=== PATIENT | female | born 1980 | race African-American/Black ===

== ENCOUNTER 2017-07-11 13:10 | Observation (INO) ==
[2017-07-11] MEDS ORDERED: SODIUM CHLORIDE 0.9% 250 ML IV PRN (14:38)
[2017-07-11 14:44] LABS: Basophils # 0.1 10*3/uL (0.0-0.2); Basophils % 0.7 % (0.0-0.8); Eosinophils # 1.1 10*3/uL (0.0-0.87); Eosinophils % 7.6 % (0.00-10.9); Hematocrit 20.9 VOL% (35.7-47.0); Hemoglobin 7.4 GM/DL (12.0-16.0); Immature Granulocytes % 3.5 %; Lymphocytes # 3.5 10*3/uL (1.4-4.0); Mean Corpuscular HGB Conc 35.4 GM/DL (32-36); Mean Corpuscular Hemoglobin 34 PG (27-34); Mean Platelet Volume 10.1 FL (9.6-12.0); Monocytes # 1.8 10*3/uL (0.11-0.8); Monocytes % 12.6 % (1.7-12.7); Neutrophils # 7.5 10*3/uL (1.4-7.4); Neutrophils % 51.6 % (38.7-73.9); Platelet Count 263 T/CUMM (130-400); White Blood Count 14.5 T/CUMM (4-12)
[2017-07-11] MEDS ORDERED: HYDROmorphone 2 MG/1 ML VIAL ONE (15:31)
[2017-07-11] MEDS ORDERED: PROMETHAZINE 25 MG/1 ML VIAL ONE (15:34)
[2017-07-11] MEDS ORDERED: HYDROmorphone 2 MG/1 ML VIAL IV STA (15:37)
[2017-07-11] MEDS ORDERED: PROMETHAZINE 25 MG/1 ML VIAL IM STA (15:38)
[2017-07-11] MEDS ORDERED: PROMETHAZINE 25 MG/1 ML VIAL IM PRN (16:11)
[2017-07-11] MEDS ORDERED: ZALEPLON 5 MG CAPSULE PO PRN (16:11)
[2017-07-11] MEDS ORDERED: ACETAMINOPHEN 325 MG TABLET PO PRN (16:11)
[2017-07-11] MEDS ORDERED: ONDANSETRON 4 MG/2 ML VIAL IV PRN (16:11)
[2017-07-11] MEDS: SODIUM CHLORIDE 0.9% 1,000 ML IV SCH (16:23)
[2017-07-11] MEDS: diphenhydrAMINE 50 MG/1 ML VIAL IV PRN ×2 (16:24→22:50)
[2017-07-11] MEDS: HYDROmorphone 2 MG/1 ML VIAL IV PRN ×3 (16:34→22:50)
[2017-07-11 17:36] LABS: Anisocytosis 1+; Band Neutrophils 1 % (0-10); Eosinophils 9 % (0-10); Lymphocytes 24 % (20-55); Nucleated Red Blood Cells 25 (0-5); Platelet Estimate Normal; Poikilocytosis 2+; Segmented Neutrophils 60 % (50-85); Target Cells Few; Tear Drop Cells Few; Total Cells Counted 100
[2017-07-11 17:38] LABS: Burr Cells Few
[2017-07-11 17:39] LABS: Sickle Cells Few
[2017-07-12 00:29] LABS: Apearance,Urine CLEAR (Clear); Bacteria,Urine Occasional /HPF (Few); Bilirubin,Urine Negative (Negative); Blood, Urine Small mg/dL (Negative); Glucose,Urine (UA) Negative (Negative); Ketones,Urine Negative (Negative); Nitrite,Urine Negative (Negative); Protein,Urine Negative; RBC,Urine <1 /HPF (0-4); Squamous Epithelial Cell,Urine Occasional /HPF (0-10); Urine Color Yellow (Yellow); Urine Specific Gravity 1.008 (1.001-1.035); Urine Urobilinogen < 2.0 EU/DL (0.2-1.0); WBC,Urine 1 /HPF (0-6)
[2017-07-12] MEDS: HYDROmorphone 2 MG/1 ML VIAL IV PRN ×6 (01:05→14:44)
[2017-07-12 02:39] LABS: Barbiturates Screen,Urine Negative (Negative); Benzodiazepines Screen,Urine Positive (Negative); Cannabinoid Screen,Urine Negative (Negative); Opiate Screen,Urine Positive (Negative); Phencyclidine Screen,Urine Negative (Negative)
[2017-07-12 02:54] LABS: Hematocrit 26.6 VOL% (35.7-47.0); Hemoglobin 9.3 GM/DL (12.0-16.0)
[2017-07-12] MEDS: diphenhydrAMINE 50 MG/1 ML VIAL IV PRN ×2 (04:46→10:44)
[2017-07-12] MEDS: SODIUM CHLORIDE 0.9% 1,000 ML IV SCH ×2 (07:40→08:48)
[2017-07-12] MEDS ORDERED: tiZANidine 4 MG TABLET PO PRN (11:29)
[2017-07-12] MEDS ORDERED: DEFERASIROX PO SCH (11:30)
[2017-07-12] MEDS ORDERED: FOLIC ACID 1 MG TABLET PO SCH (11:30)
[2017-07-12] MEDS ORDERED: FERROUS SULFATE 325 MG TABLET PO SCH (11:30)
[2017-07-12] MEDS ORDERED: HYDROXYUREA 500 MG CAPSULE PO SCH (11:30)
[2017-07-12] MEDS ORDERED: ALPRAZolam 0.5 MG TABLET PO PRN (11:30)
[2017-07-12 12:13] VITALS: BP 110/61
[2017-07-12] MEDS ORDERED: HEPARIN LOCK FLUSH 500 UNIT/5 ML SYRINGE IV ONE (14:42)
== END 2017-07-12 16:14 | disposition home or self-care (01) ==
LOC: N.ED 13:10 → N.EDINP 13:10 → N.4E 15:55
PROVIDERS: ADMIT Internal Medicine; ATTEND Internal Medicine

== ENCOUNTER 2017-12-20 15:53 | Inpatient (IN) ==
[2017-12-20] MEDS ORDERED: SODIUM CHLORIDE 0.9% 1,000 ML IV STA (18:01)
[2017-12-20] MEDS ORDERED: MORPHINE 2 MG/1 ML SYRINGE IV STA (18:04)
[2017-12-20 18:30] LABS: Basophils # 0.1 10*3/uL (0.0-0.2); Basophils % 0.3 % (0.0-0.8); Eosinophils # 1.6 10*3/uL (0.0-0.87); Eosinophils % 10.9 % (0.00-10.9); Hematocrit 18.6 VOL% (35.7-47.0); Hemoglobin 6.5 GM/DL (12.0-16.0); Immature Granulocytes % 1.2 %; Immature Granulocytes Absolute 0.17 #; Lymphocytes # 2.8 10*3/uL (1.4-4.0); Mean Corpuscular HGB Conc 34.9 GM/DL (32-36); Mean Corpuscular Hemoglobin 32 PG (27-34); Mean Corpuscular Volume 90.7 FL (87-102); Mean Platelet Volume 9.5 FL (9.6-12.0); Monocytes # 1.2 10*3/uL (0.11-0.8); Monocytes % 8.4 % (1.7-12.7); NRBC # 0.34 10*3/uL; Neutrophils # 8.8 10*3/uL (1.4-7.4); Neutrophils % 60.2 % (38.7-73.9); Platelet Count 303 T/CUMM (130-400); Red Blood Count 2.05 MC/CUMM (3.8-5.5); Red Cell Distribution Width 19.2 % (9.3-17.3); White Blood Count 14.6 T/CUMM (4-12)
[2017-12-20] MEDS ORDERED: MORPHINE 4 MG/1 ML VIAL ONE (18:35)
[2017-12-20 19:00] LABS: Apearance,Urine CLEAR (Clear); Bacteria,Urine Occasional /HPF (Few); Bilirubin,Urine Negative (Negative); Blood, Urine Small mg/dL (Negative); Glucose,Urine (UA) Negative (Negative); Ketones,Urine Negative (Negative); Mucus,Urine Occasional /LPF (Occasional); Nitrite,Urine Negative (Negative); Protein,Urine 30 MG/DL; Squamous Epithelial Cell,Urine Occasional /HPF (0-10); Urine Color Yellow (Yellow); Urine Specific Gravity 1.009 (1.001-1.035); Urine Urobilinogen < 2.0 EU/DL (0.2-1.0); WBC,Urine <1 /HPF (0-6)
[2017-12-20 19:22] LABS: Albumin 3.7 G/DL (3.4-5.0); Bilirubin,Total 1.5 MG/DL (0.2-1.0); Calcium 8.2 MG/DL (8.5-10.1); Osmolality,Calculated 279.4 MOS/KG (273-304); Potassium 4.1 MMOL/L (3.5-5.1); Total Protein 7.7 G/DL (6.4-8.3)
[2017-12-20] MEDS ORDERED: ACETAMINOPHEN 325 MG TABLET PO PRN (19:52)
[2017-12-20] MEDS ORDERED: SODIUM CHLORIDE 0.9% 1,000 ML IV PRN (19:57)
[2017-12-20] MEDS ORDERED: PROMETHAZINE 25 MG/1 ML VIAL IM PRN (19:58)
[2017-12-20] MEDS ORDERED: SODIUM CHLORIDE 0.9% 1,000 ML IV SCH (20:00)
[2017-12-20] MEDS: ENOXAPARIN 40 MG/0.4 ML SYRINGE SUBCUT SCH (21:26)
[2017-12-20] MEDS: HYDROmorphone 2 MG/1 ML VIAL IV PRN (21:28)
[2017-12-20] MEDS ORDERED: diphenhydrAMINE CAP 25 MG CAPSULE PO ONE (21:54)
[2017-12-21] MEDS: HYDROmorphone 2 MG/1 ML VIAL IV PRN ×5 (01:21→21:12)
[2017-12-21 06:59] LABS: Basophils # 0.1 10*3/uL (0.0-0.2); Basophils % 0.7 % (0.0-0.8); Eosinophils # 1.6 10*3/uL (0.0-0.87); Eosinophils % 10.9 % (0.00-10.9); Hematocrit 22.5 VOL% (35.7-47.0); Immature Granulocytes % 1.1 %; Immature Granulocytes Absolute 0.16 #; Lymphocytes # 2.5 10*3/uL (1.4-4.0); Lymphocytes % 17.1 % (21.3-54.2); Mean Corpuscular HGB Conc 35.6 GM/DL (32-36); Mean Corpuscular Hemoglobin 31 PG (27-34); Mean Corpuscular Volume 87.9 FL (87-102); Mean Platelet Volume 9.7 FL (9.6-12.0); Monocytes # 1.1 10*3/uL (0.11-0.8); Monocytes % 7.8 % (1.7-12.7); Neutrophils % 62.4 % (38.7-73.9); Platelet Count 268 T/CUMM (130-400); Red Blood Count 2.56 MC/CUMM (3.8-5.5); Red Cell Distribution Width 17.9 % (9.3-17.3); White Blood Count 14.4 T/CUMM (4-12)
[2017-12-21 07:45] LABS: Albumin 3.4 G/DL (3.4-5.0); Bilirubin,Total 1.8 MG/DL (0.2-1.0); Calcium 8.1 MG/DL (8.5-10.1); Total Protein 7.1 G/DL (6.4-8.3)
[2017-12-21 07:46] LABS: Osmolality,Calculated 279.3 MOS/KG (273-304); Potassium 4.3 MMOL/L (3.5-5.1)
[2017-12-21] MEDS ORDERED: RIZATRIPTAN ODT 5 MG TABLET PO ONE (09:14)
[2017-12-21] MEDS: CALCIUM (CARBONATE)/VITAMIN D 500 MG-200 UNIT TABLET PO SCH (09:27)
[2017-12-21] MEDS: SODIUM BICARB INJ 100 MEQ in DEXTROSE 5% 1,000 ML IV SCH ×2 (11:42→20:10)
[2017-12-21] MEDS: PROMETHAZINE INJ 12.5 MG in SODIUM CHLORIDE 0.9% 50 ML IV PRN ×2 (13:50→23:53)
[2017-12-21] MEDS: ENOXAPARIN 40 MG/0.4 ML SYRINGE SUBCUT SCH (20:09)
[2017-12-22] MEDS: SODIUM BICARB INJ 100 MEQ in DEXTROSE 5% 1,000 ML IV SCH (05:07)
[2017-12-22 05:29] VITALS: BP 115/81
[2017-12-22] MEDS: HYDROmorphone 2 MG/1 ML VIAL IV PRN (06:11)
[2017-12-22 06:22] LABS: Basophils # 0.1 10*3/uL (0.0-0.2); Basophils % 0.5 % (0.0-0.8); Eosinophils # 1.6 10*3/uL (0.0-0.87); Eosinophils % 12.9 % (0.00-10.9); Hematocrit 23.1 VOL% (35.7-47.0); Hemoglobin 8.1 GM/DL (12.0-16.0); Immature Granulocytes % 1.1 %; Immature Granulocytes Absolute 0.14 #; Lymphocytes # 2.1 10*3/uL (1.4-4.0); Mean Corpuscular HGB Conc 35.1 GM/DL (32-36); Mean Corpuscular Hemoglobin 30 PG (27-34); Mean Corpuscular Volume 86.5 FL (87-102); Mean Platelet Volume 10.2 FL (9.6-12.0); Monocytes % 8.1 % (1.7-12.7); NRBC # 0.31 10*3/uL; Neutrophils # 7.6 10*3/uL (1.4-7.4); Neutrophils % 60.4 % (38.7-73.9); Platelet Count 274 T/CUMM (130-400); Red Blood Count 2.67 MC/CUMM (3.8-5.5); White Blood Count 12.5 T/CUMM (4-12)
[2017-12-22] MEDS ORDERED: tiZANidine 4 MG TABLET PO PRN (06:46)
[2017-12-22] MEDS ORDERED: ALPRAZolam 0.5 MG TABLET PO PRN (06:46)
[2017-12-22 06:51] LABS: Eosinophils 19 % (0-10); Giant Platelets Few; Hypochromasia 1+; Lymphocytes 13 % (20-55); Nucleated Red Blood Cells 7 (0-5); Platelet Estimate Adequate; Segmented Neutrophils 63 % (50-85); Target Cells Few; Total Cells Counted 100
[2017-12-22 06:52] LABS: Elliptocytes Few; Macrocytosis Slight; Polychromasia Slight; Sickle Cells Few
[2017-12-22 06:57] LABS: Albumin 3.2 G/DL (3.4-5.0); Bilirubin,Total 1.6 MG/DL (0.2-1.0); Calcium 7.9 MG/DL (8.5-10.1); Osmolality,Calculated 277.5 MOS/KG (273-304); Potassium 4.1 MMOL/L (3.5-5.1); Total Protein 6.9 G/DL (6.4-8.3)
[2017-12-22] MEDS ORDERED: MAGNESIUM OXIDE 400 MG TABLET PO ONE (07:15)
[2017-12-22] MEDS ORDERED: HYDROXYUREA 500 MG CAPSULE PO SCH (09:00)
[2017-12-22] MEDS ORDERED: FERROUS SULFATE 325 MG TABLET PO SCH (09:00)
[2017-12-22] MEDS ORDERED: FOLIC ACID 1 MG TABLET PO SCH (09:00)
[2017-12-22] MEDS ORDERED: DEFERASIROX PO SCH (09:00)
[2017-12-22] MEDS: CALCIUM (CARBONATE)/VITAMIN D 500 MG-200 UNIT TABLET PO SCH (09:22)
== END 2017-12-22 11:18 | disposition home or self-care (01) | DRG 662 ==
LOC: N.ED 15:53 → N.EDINP 19:50 → N.2E 20:35
PROVIDERS: ADMIT Internal Medicine; ATTEND Internal Medicine

== ENCOUNTER 2018-04-09 17:34 | Inpatient (IN) ==
[2018-04-09] MEDS ORDERED: SODIUM CHLORIDE 0.9% 1,000 ML IV STA (17:55)
[2018-04-09] MEDS ORDERED: fentaNYL 100 MCG/2 ML VIAL IV STA ×2 (17:58→19:12)
[2018-04-09] MEDS ORDERED: METOCLOPRAMIDE 10 MG/2 ML VIAL IV STA (17:59)
[2018-04-09 18:41] LABS: Basophils # 0.1 10*3/uL (0.0-0.2); Basophils % 0.7 % (0.0-0.8); Eosinophils # 1.5 10*3/uL (0.0-0.87); Eosinophils % 8.7 % (0.00-10.9); Hematocrit 19.6 VOL% (35.7-47.0); Hemoglobin 6.7 GM/DL (12.0-16.0); Immature Granulocytes % 2.4 %; Immature Granulocytes Absolute 0.41 #; Lymphocytes # 2.5 10*3/uL (1.4-4.0); Lymphocytes % 14.6 % (21.3-54.2); Mean Corpuscular HGB Conc 34.2 GM/DL (32-36); Mean Corpuscular Hemoglobin 31 PG (27-34); Mean Corpuscular Volume 90.7 FL (87-102); Mean Platelet Volume 9.8 FL (9.6-12.0); Monocytes # 1.9 10*3/uL (0.11-0.8); Monocytes % 11.2 % (1.7-12.7); NRBC # 1.83 10*3/uL; Neutrophils # 10.9 10*3/uL (1.4-7.4); Neutrophils % 62.4 % (38.7-73.9); Platelet Count 382 T/CUMM (130-400); Red Blood Count 2.16 MC/CUMM (3.8-5.5); Red Cell Distribution Width 19.9 % (9.3-17.3); White Blood Count 17.4 T/CUMM (4-12)
[2018-04-09 18:48] LABS: Partial Thromboplastin Time 31.7 SECS (0-40)
[2018-04-09] MEDS ORDERED: PROMETHAZINE 25 MG/1 ML VIAL ONE (18:48)
[2018-04-09] MEDS ORDERED: PROMETHAZINE 25 MG/1 ML VIAL IM STA (18:51)
[2018-04-09 19:15] LABS: Alanine Aminotransferase 62 U/L (13-56); Albumin 3.5 G/DL (3.4-5.0); Alkaline Phosphatase 121 U/L (45-117); Aspartate Amino Transferase 76 U/L (0-37); Blood Urea Nitrogen 22 MG/DL (7-18); Calcium 8.6 MG/DL (8.5-10.1); Glucose 117 MG/DL (74-106); Osmolality,Calculated 286.1 MOS/KG (273-304); Potassium 4.3 MMOL/L (3.5-5.1); Sodium 142 MMOL/L (136-145); Troponin I Only < 0.015 NG/ML (0.00-0.045)
[2018-04-09 19:24] LABS: Eosinophils 7 % (0-10); Lymphocytes 14 % (20-55); Nucleated Red Blood Cells 14 (0-5); Segmented Neutrophils 69 % (50-85); Total Cells Counted 100
[2018-04-09 19:25] LABS: Anisocytosis 2+; Hypochromasia 1+; Polychromasia 1+; Target Cells Few
[2018-04-09 19:26] LABS: Ovalocytes Few
[2018-04-09 19:27] LABS: Tear Drop Cells Few
[2018-04-09 19:28] LABS: Sickle Cells 1+
[2018-04-09 19:29] LABS: Basophilic Stippling Few
[2018-04-09 19:32] LABS: Platelet Estimate Adequate
[2018-04-09 20:11] LABS: Apearance,Urine CLEAR (Clear); Bilirubin,Urine Negative (Negative); Blood, Urine Moderate mg/dL (Negative); Glucose,Urine (UA) Negative (Negative); Ketones,Urine Negative (Negative); Nitrite,Urine Negative (Negative); Protein,Urine 30 MG/DL; RBC,Urine <1 /HPF (0-4); Squamous Epithelial Cell,Urine Occasional /HPF (0-10); Urine Color Yellow (Yellow); Urine Specific Gravity 1.008 (1.001-1.035); Urine Urobilinogen < 2.0 EU/DL (0.2-1.0); WBC,Urine <1 /HPF (0-6)
[2018-04-09] MEDS ORDERED: MEPERIDINE 25 MG/1 ML VIAL IV STA (20:26)
[2018-04-09] MEDS ORDERED: MEPERIDINE 25 MG/1 ML VIAL ONE (20:27)
[2018-04-09] MEDS ORDERED: ACETAMINOPHEN 325 MG TABLET PO PRN (20:39)
[2018-04-09] MEDS ORDERED: SODIUM CHLORIDE 0.9% 1,000 ML IV PRN (20:52)
[2018-04-09] MEDS ORDERED: PROMETHAZINE 25 MG TABLET PO PRN (20:52)
[2018-04-09] MEDS ORDERED: methylPREDNISolone SOD SUC 40 MG/1 ML VIAL IV ONE (22:00)
[2018-04-09] MEDS: HYDROmorphone 2 MG/1 ML VIAL IV PRN (23:38)
[2018-04-09] MEDS: SODIUM CHLORIDE 0.45% 1,000 ML IV SCH (23:41)
[2018-04-09] MEDS: DOCUSATE SODIUM 100 MG CAPSULE PO SCH (23:42)
[2018-04-10] MEDS: HYDROmorphone 2 MG/1 ML VIAL IV PRN ×5 (05:26→20:17)
[2018-04-10 06:03] LABS: Basophils # 0.1 10*3/uL (0.0-0.2); Basophils % 0.8 % (0.0-0.8); Eosinophils % 0.1 % (0.00-10.9); Hematocrit 23.2 VOL% (35.7-47.0); Hemoglobin 7.8 GM/DL (12.0-16.0); Immature Granulocytes % 3.5 %; Immature Granulocytes Absolute 0.47 #; Lymphocytes # 1.1 10*3/uL (1.4-4.0); Lymphocytes % 7.9 % (21.3-54.2); Mean Corpuscular HGB Conc 33.6 GM/DL (32-36); Mean Corpuscular Hemoglobin 31 PG (27-34); Mean Corpuscular Volume 93.2 FL (87-102); Mean Platelet Volume 10.1 FL (9.6-12.0); Monocytes # 0.3 10*3/uL (0.11-0.8); Monocytes % 2.3 % (1.7-12.7); NRBC # 1.54 10*3/uL; Neutrophils # 11.5 10*3/uL (1.4-7.4); Neutrophils % 85.4 % (38.7-73.9); Platelet Count 388 T/CUMM (130-400); Red Blood Count 2.49 MC/CUMM (3.8-5.5); Red Cell Distribution Width 19.4 % (9.3-17.3); White Blood Count 13.5 T/CUMM (4-12)
[2018-04-10 06:18] LABS: Calcium 8.8 MG/DL (8.5-10.1); Osmolality,Calculated 283.4 MOS/KG (273-304); Potassium 4.7 MMOL/L (3.5-5.1)
[2018-04-10 06:43] LABS: Band Neutrophils 2 % (0-10); Elliptocytes Few; Eosinophils 1 % (0-10); Lymphocytes 8 % (20-55); Nucleated Red Blood Cells 17 (0-5); Platelet Estimate Adequate; Segmented Neutrophils 87 % (50-85); Total Cells Counted 100
[2018-04-10 06:44] LABS: Giant Platelets Few; Howell-Jolly Bodies Slight; Hypochromasia 1+; Macrocytosis Slight; Pappenheimer Bodies Slight; Polychromasia Slight; Sickle Cells Few
[2018-04-10 06:45] LABS: Target Cells Few
[2018-04-10] MEDS: DOCUSATE SODIUM 100 MG CAPSULE PO SCH ×2 (08:56→20:21)
[2018-04-10] MEDS: PANTOPRAZOLE 40 MG TABLET PO SCH (08:56)
[2018-04-10] MEDS: ENOXAPARIN 40 MG/0.4 ML SYRINGE SUBCUT SCH (09:01)
[2018-04-10] MEDS ORDERED: PROMETHAZINE 25 MG TABLET PO PRN (09:18)
[2018-04-10] MEDS: SODIUM CHLORIDE 0.45% 1,000 ML IV SCH (21:49)
[2018-04-10] MEDS: CYCLOBENZAPRINE 10 MG TABLET PO PRN (21:57)
[2018-04-11] MEDS: HYDROmorphone 2 MG/1 ML VIAL IV PRN ×6 (02:10→22:54)
[2018-04-11] MEDS: SODIUM CHLORIDE 0.45% 1,000 ML IV SCH ×5 (02:52→22:54)
[2018-04-11 05:59] LABS: Basophils # 0.2 10*3/uL (0.0-0.2); Eosinophils # 1.2 10*3/uL (0.0-0.87); Eosinophils % 8.6 % (0.00-10.9); Hematocrit 24.7 VOL% (35.7-47.0); Hemoglobin 8.5 GM/DL (12.0-16.0); Immature Granulocytes % 1.8 %; Immature Granulocytes Absolute 0.26 #; Lymphocytes # 3.2 10*3/uL (1.4-4.0); Lymphocytes % 21.9 % (21.3-54.2); Mean Corpuscular HGB Conc 34.4 GM/DL (32-36); Mean Corpuscular Hemoglobin 31 PG (27-34); Mean Corpuscular Volume 90.5 FL (87-102); Mean Platelet Volume 9.5 FL (9.6-12.0); Monocytes # 1.7 10*3/uL (0.11-0.8); Monocytes % 11.4 % (1.7-12.7); NRBC # 1.16 10*3/uL; Neutrophils % 55.3 % (38.7-73.9); Platelet Count 338 T/CUMM (130-400); Red Blood Count 2.73 MC/CUMM (3.8-5.5); Red Cell Distribution Width 19.8 % (9.3-17.3); White Blood Count 14.5 T/CUMM (4-12)
[2018-04-11 06:27] LABS: Calcium 8.8 MG/DL (8.5-10.1); Osmolality,Calculated 281.3 MOS/KG (273-304); Potassium 4.7 MMOL/L (3.5-5.1)
[2018-04-11] MEDS: DOCUSATE SODIUM 100 MG CAPSULE PO SCH ×2 (09:29→22:01)
[2018-04-11] MEDS: ENOXAPARIN 40 MG/0.4 ML SYRINGE SUBCUT SCH (09:29)
[2018-04-11] MEDS: PANTOPRAZOLE 40 MG TABLET PO SCH (09:30)
[2018-04-11] MEDS: ALPRAZolam 0.5 MG TABLET PO PRN (09:30)
[2018-04-11] MEDS: FOLIC ACID 1 MG TABLET PO SCH (09:30)
[2018-04-11] MEDS: HYDROXYUREA 500 MG CAPSULE PO SCH (09:30)
[2018-04-11] MEDS: CYCLOBENZAPRINE 10 MG TABLET PO PRN (12:51)
[2018-04-11] MEDS: DEFERASIROX PO SCH (18:20)
[2018-04-12] MEDS: SODIUM CHLORIDE 0.45% 1,000 ML IV SCH ×3 (01:38→17:53)
[2018-04-12] MEDS: HYDROmorphone 2 MG/1 ML VIAL IV PRN ×7 (01:38→21:37)
[2018-04-12 06:35] LABS: Basophils # 0.1 10*3/uL (0.0-0.2); Basophils % 0.8 % (0.0-0.8); Eosinophils # 1.7 10*3/uL (0.0-0.87); Eosinophils % 13.1 % (0.00-10.9); Hematocrit 23.5 VOL% (35.7-47.0); Hemoglobin 8.1 GM/DL (12.0-16.0); Immature Granulocytes % 1.4 %; Immature Granulocytes Absolute 0.19 #; Lymphocytes # 2.9 10*3/uL (1.4-4.0); Mean Corpuscular HGB Conc 34.5 GM/DL (32-36); Mean Corpuscular Hemoglobin 31 PG (27-34); Mean Corpuscular Volume 90.4 FL (87-102); Mean Platelet Volume 9.8 FL (9.6-12.0); Monocytes # 1.3 10*3/uL (0.11-0.8); Monocytes % 9.9 % (1.7-12.7); NRBC # 0.92 10*3/uL; Neutrophils % 52.8 % (38.7-73.9); Platelet Count 344 T/CUMM (130-400); Red Cell Distribution Width 19.9 % (9.3-17.3); White Blood Count 13.2 T/CUMM (4-12)
[2018-04-12 07:04] LABS: Anisocytosis 2+; Band Neutrophils 4 % (0-10); Eosinophils 19 % (0-10); Lymphocytes 23 % (20-55); Nucleated Red Blood Cells 10 (0-5); Poikilocytosis 3+; Segmented Neutrophils 46 % (50-85); Total Cells Counted 100
[2018-04-12 07:05] LABS: Polychromasia 3+
[2018-04-12 07:06] LABS: Sickle Cells 2+
[2018-04-12 07:07] LABS: Acanthocytes 1+; Calcium 8.5 MG/DL (8.5-10.1); Osmolality,Calculated 285.1 MOS/KG (273-304); Potassium 4.7 MMOL/L (3.5-5.1)
[2018-04-12] MEDS: DOCUSATE SODIUM 100 MG CAPSULE PO SCH ×2 (08:09→21:13)
[2018-04-12] MEDS: ENOXAPARIN 40 MG/0.4 ML SYRINGE SUBCUT SCH (08:14)
[2018-04-12] MEDS: PANTOPRAZOLE 40 MG TABLET PO SCH (08:14)
[2018-04-12] MEDS: DEFERASIROX PO SCH (08:14)
[2018-04-12] MEDS: HYDROXYUREA 500 MG CAPSULE PO SCH (08:14)
[2018-04-12] MEDS: FOLIC ACID 1 MG TABLET PO SCH (08:14)
[2018-04-12] MEDS: ALPRAZolam 0.5 MG TABLET PO PRN (08:14)
[2018-04-12] MEDS ORDERED: diphenhydrAMINE CAP 25 MG CAPSULE PO PRN (15:15)
[2018-04-12] MEDS ORDERED: SODIUM CHLORIDE 0.9% 1,000 ML IV PRN (16:43)
[2018-04-13] MEDS: HYDROmorphone 2 MG/1 ML VIAL IV PRN ×6 (00:45→16:30)
[2018-04-13] MEDS: SODIUM CHLORIDE 0.45% 1,000 ML IV SCH ×2 (02:25→11:04)
[2018-04-13 08:02] LABS: Basophils # 0.1 10*3/uL (0.0-0.2); Eosinophils % 13.9 % (0.00-10.9); Hematocrit 27.1 VOL% (35.7-47.0); Hemoglobin 9.4 GM/DL (12.0-16.0); Immature Granulocytes % 1.1 %; Immature Granulocytes Absolute 0.16 #; Lymphocytes # 2.4 10*3/uL (1.4-4.0); Lymphocytes % 16.4 % (21.3-54.2); Mean Corpuscular HGB Conc 34.7 GM/DL (32-36); Mean Corpuscular Hemoglobin 31 PG (27-34); Mean Platelet Volume 9.7 FL (9.6-12.0); Monocytes # 1.3 10*3/uL (0.11-0.8); Monocytes % 9.1 % (1.7-12.7); NRBC # 0.71 10*3/uL; Neutrophils # 8.4 10*3/uL (1.4-7.4); Neutrophils % 58.5 % (38.7-73.9); Platelet Count 325 T/CUMM (130-400); Red Blood Count 3.01 MC/CUMM (3.8-5.5); Red Cell Distribution Width 19.3 % (9.3-17.3); White Blood Count 14.4 T/CUMM (4-12)
[2018-04-13 08:33] LABS: Calcium 8.8 MG/DL (8.5-10.1); Osmolality,Calculated 279.5 MOS/KG (273-304); Potassium 4.5 MMOL/L (3.5-5.1)
[2018-04-13 08:35] LABS: Risk Ratio 4.21; VLDL CHOLESTEROL 52.8 MG/DL
[2018-04-13 08:36] LABS: Albumin 3.5 G/DL (3.4-5.0); Bilirubin,Total 1.5 MG/DL (0.2-1.0); Calcium 8.7 MG/DL (8.5-10.1); Osmolality,Calculated 281.4 MOS/KG (273-304); Potassium 4.6 MMOL/L (3.5-5.1); Total Protein 7.6 G/DL (6.4-8.3)
[2018-04-13 08:48] LABS: Eosinophils 15 % (0-10); Hypochromasia 1+; Lymphocytes 19 % (20-55); Microcytosis 1+; Nucleated Red Blood Cells 7 (0-5); Segmented Neutrophils 56 % (50-85); Total Cells Counted 100
[2018-04-13 08:49] LABS: Anisocytosis 1+; Polychromasia Slight
[2018-04-13 08:50] LABS: Pappenheimer Bodies 1+
[2018-04-13 08:51] LABS: Howell-Jolly Bodies Slight; Platelet Estimate Normal; Sickle Cells Few
[2018-04-13] MEDS: HYDROXYUREA 500 MG CAPSULE PO SCH (09:08)
[2018-04-13] MEDS: FOLIC ACID 1 MG TABLET PO SCH (09:08)
[2018-04-13] MEDS: ENOXAPARIN 40 MG/0.4 ML SYRINGE SUBCUT SCH (09:08)
[2018-04-13] MEDS: PANTOPRAZOLE 40 MG TABLET PO SCH (09:08)
[2018-04-13] MEDS: DOCUSATE SODIUM 100 MG CAPSULE PO SCH (09:08)
[2018-04-13] MEDS: DEFERASIROX PO SCH (09:09)
[2018-04-13] MEDS ORDERED: MAGNESIUM SULF RIDER 2 GM in PREMIX 1 EACH IV ONE (10:44)
[2018-04-13 12:16] VITALS: BP 109/73
== END 2018-04-13 17:06 | disposition home or self-care (01) | DRG 662 ==
LOC: N.ED 17:34 → N.EDINP 20:39 → N.5E 22:59
PROVIDERS: ADMIT Hospitalist; ATTEND Hospitalist